=== PATIENT | male | born 1940 | race Two or more races ===

== ENCOUNTER 2019-04-20 14:29 | Inpatient (IN) | payer BC ==
[~2019-04-20] VITALS: Ht 172.7 cm; Wt 88.0 kg
--- NOTE | 2019-04-20 14:32 | NUR ---
[id number], from the liquor store, near syncope, no injury, BS 202,zofran 4mg given on , from the liquor store, near syncope, no injury, BS 202,zofran 4mg given on scene, pt awake, alert, -sob, nad ntoed ,vss, pending md flores
--- NOTE | 2019-04-20 14:42 | NUR ---
AT BEDSIDE FOR EVAL.
[2019-04-20 14:59] LABS: BASOPHILS % (AUTO) 0.5 % (0.0-2.0); EOSINOPHILS % (AUTO) 0.9 % (0.0-6.0); HEMATOCRIT 35 % (39-51); HEMOGLOBIN 11.4 g/dL (13.5-17.5); LYMPHOCYTES # (AUTO) 1.3 /CMM (0.8-4.8); LYMPHOCYTES % (AUTO) 24.8 % (20.0-44.0); MEAN CORPUSCULAR HGB CONC 33 g/dl (31.0-36.0); MEAN CORPUSCULAR VOLUME 89 fL (80-96); MONOCYTES # (AUTO) 0.2 /CMM (0.1-1.30); MONOCYTES % (AUTO) 3.5 % (2.0-12.0); NEUTROPHILS # (AUTO) 3.7 /CMM (1.8-8.9); NEUTROPHILS % (AUTO) 70.3 % (43.0-81.0); PLATELET COUNT (AUTO) 190 /CMM (150-450); RED BLOOD CELL COUNT(AUTO) 3.86 MIL/uL (4.5-6.0); WHITE BLOOD COUNT (AUTO) 5.3 K/uL (4.3-11.0)
[2019-04-20] MEDS ORDERED: IV NS 0.9% 500 ML BAG IV ONE (15:00)
[2019-04-20 15:10] LABS: CALCIUM, SERUM 9.4 mg/dL (8.5-10.1); CARBON DIOXIDE 27 mmol/L (21-32); CHLORIDE 98 mmol/L (98-107); CREATININE 1.5 mg/dL (0.6-1.3); GLUCOSE 206 mg/dL (74-106); POTASSIUM 3.4 mmol/L (3.5-5.1); SODIUM SERUM 134 mmol/L (136-145); UREA NITROGEN, BLOOD 24 mg/dL (7-18)
[2019-04-20 15:16] LABS: ALANINE AMINOTRANSFERASE < 6 U/L (12-78); ALBUMIN 3.2 g/dL (3.4-5.0); ALKALINE PHOSPHATASE 48 U/L (46-116); ASPARTATE AMINOTRANSFERASE 12 U/L (15-37); BILIRUBIN,DIRECT 0.1 mg/dL (0.0-0.2); BILIRUBIN,TOTAL 0.5 mg/dL (0.2-1.0); TOTAL PROTEIN, SERUM 7.2 g/dL (6.4-8.2)
[2019-04-20] MEDS ORDERED: OMEP20TA20 PO (15:26)
[2019-04-20] MEDS ORDERED: TAMS-12 PO (15:26)
[2019-04-20] MEDS ORDERED: AMLO5TAB9 PO (15:26)
[2019-04-20] MEDS ORDERED: ASPI-1169 PO (15:26)
[2019-04-20] MEDS ORDERED: ROSU20TA32 PO (15:26)
[2019-04-20] MEDS ORDERED: OLME40TA18 PO (15:26)
[2019-04-20] MEDS ORDERED: SITA100T PO (15:26)
--- NOTE | 2019-04-20 15:45 | NUR ---
ALESSANDRA TIRADO FOR ADMISSION
--- NOTE | 2019-04-20 16:34 | NUR ---
report given to dallas tomlin for dony pt will be tranposrted to 1st floor
--- NOTE | 2019-04-20 17:27 | NUR ---
pt transported to 1st floor
[2019-04-20 17:30] VITALS: BP 120/60
--- NOTE | 2019-04-20 17:30 | NUR ---
RN NOTE RECEIVED PT, AOX3, AMBULATORY, STEADY GAIT, NO SOB, NO PAIN, NO FEVER, IV ON L HAND INTACT, WITH FAMILY AT SIDE, ABLE TO SWALLOW, ON TELEMETRY SR 77. VSS. SAFETY MEASURES IN PLACE, BED ALARM ON, CALL LIGHT WITHIN REACH, AWAITING FOR DR TIRADO ADMITTING ORDERS. WILL MONITOR.
[2019-04-20 17:58] VITALS: BP 120/60
[2019-04-20] MEDS ORDERED: ONDANSETRON HCL/PF 4 MG/2 ML VIAL IVP PRN (18:00)
[2019-04-20] MEDS ORDERED: ACETAMINOPHEN 325 MG TABLET PO PRN (18:00)
[2019-04-20] MEDS ORDERED: DEXTROSE 50%-WATER 50 ML DISP.SYRIN IV PRN (18:00)
[2019-04-20] MEDS ORDERED: Z GUARD REMEDY 2 OZ OINT TP PRN (18:00)
[2019-04-20] MEDS ORDERED: INSULIN REGULAR, HUMAN 100 UNIT/ML 3 ML VIAL SQ PRN (18:00)
[2019-04-20] MEDS ORDERED: MAGNESIUM HYDROXIDE 30 ML UDC PO PRN (18:00)
[2019-04-20] MEDS ORDERED: HYDROCODONE/APAP 5/325MG 1 EACH TABLET PO PRN (18:00)
[2019-04-20] MEDS ORDERED: MAG HYDROX/AL HYDROX/SIMETH 30 ML UDC PO PRN (18:00)
[2019-04-20] MEDS: IV NS 0.9% 1,000 ML IV PRN (18:08)
[2019-04-20 20:00] VITALS: BP 104/58
--- NOTE | 2019-04-20 20:00 | NUR ---
RECEIVED PATIENT AWAKE,ALERT,DENIES ANY PAIN,NOT IN ANY DISTRESS,DENIES ANY DIZZINESS.MOVES ALL EXTREMITES WELL ,ABLE TO STAND UP WITH NO ISSUES/NO DIZZINESS.WILL CLOSELY MONITOR FOR ANY EPISODE OF SYNCOPE.NEEDS ATTENDED.
[2019-04-21] VITALS: BP_SYST 105; BP_SYST 108; BP_DIAS 50
--- NOTE | 2019-04-21 | NUR ---
REMAINS STABLE,AWAKE,AERT, NO COMPLAINS AT THIS TIME.
[2019-04-21] MEDS: BLOOD SUGAR DIAGNOSTIC 1 EACH STRIP VI SCH ×5 (00:54→22:01)
[2019-04-21 04:00] VITALS: BP 117/58
--- NOTE | 2019-04-21 04:00 | NUR ---
ASLEEP,REMAINS STABLE.
[2019-04-21] MEDS: IV NS 0.9% 1,000 ML IV PRN ×2 (06:08→21:47)
[2019-04-21 06:41] LABS: BASOPHILS % (AUTO) 0.4 % (0.0-2.0); EOSINOPHILS % (AUTO) 1.5 % (0.0-6.0); HEMATOCRIT 33 % (39-51); LYMPHOCYTES # (AUTO) 1.9 /CMM (0.8-4.8); LYMPHOCYTES % (AUTO) 33.5 % (20.0-44.0); MEAN CORPUSCULAR HGB CONC 34 g/dl (31.0-36.0); MEAN CORPUSCULAR VOLUME 88 fL (80-96); MONOCYTES # (AUTO) 0.3 /CMM (0.1-1.30); MONOCYTES % (AUTO) 5.9 % (2.0-12.0); NEUTROPHILS # (AUTO) 3.2 /CMM (1.8-8.9); NEUTROPHILS % (AUTO) 58.7 % (43.0-81.0); PLATELET COUNT (AUTO) 198 /CMM (150-450); RED BLOOD CELL COUNT(AUTO) 3.69 MIL/uL (4.5-6.0); WHITE BLOOD COUNT (AUTO) 5.5 K/uL (4.3-11.0)
[2019-04-21 06:45] LABS: CALCIUM, SERUM 8.6 mg/dL (8.5-10.1); CARBON DIOXIDE 27 mmol/L (21-32); CHLORIDE 106 mmol/L (98-107); CREATININE 1.4 mg/dL (0.6-1.3); GLUCOSE 103 mg/dL (74-106); MAGNESIUM 1.6 mg/dL (1.8-2.4); PHOSPHORUS 3.1 mg/dL (2.5-4.9); POTASSIUM 3.8 mmol/L (3.5-5.1); SODIUM SERUM 142 mmol/L (136-145); UREA NITROGEN, BLOOD 23 mg/dL (7-18)
--- NOTE | 2019-04-21 07:00 | NUR ---
STABLE ALL NIGHT,NO COMPLAIN OF DIZZINESSOR WEAKNESS.ENDORSED AND REPORT GIVEN TO DAY SHIFT RN.
--- NOTE | 2019-04-21 07:20 | NUR ---
RN OPENING NOTE RECEIVED PATIENT IN BED RESTING WITH HOB ELEVATED. BREATHING IS EVEN AND NON LABORED. RESPONSIVE TO NAME AND TACTILE STIMULI. IN NO APPARENT DISTRESS NOTED. CALL LIGHT IS WITHIN EASY REACH. BED IS LOWERED TO LOWEST POSITION AND LOCKED FOR SAFETY. WILL CONTINUE TO MONITOR.
[2019-04-21 08:00] VITALS: BP 113/62
[2019-04-21] MEDS: ASPIRIN 81 MG TAB.CHEW PO SCH (08:31)
[2019-04-21] MEDS: PANTOPRAZOLE 40 MG TABLET.DR PO SCH (08:39)
[2019-04-21] MEDS: Magnesium 1GM/D5W 100ML PREMIX 100 ML IV SCH ×2 (09:50→11:20)
[2019-04-21] MEDS: *INSULIN REGULAR(HUMULIN R)HUM 100 UNIT/ML VIAL SQ PRN (12:27)
[2019-04-21 14:38] LABS: CHOLESTEROL 84 mg/dL (<200); HDL CHOLESTEROL 27 mg/dL (40-60); LDL 40 mg/dL (0-99); TRIGLYCERIDES 150 mg/dL (30-150)
[2019-04-21 15:33] LABS: APPEARANCE,URINE CLEAR (CLEAR); BILIRUBIN,URINE NEGATIVE (NEGATIVE); BLOOD, URINE NEGATIVE Ery/uL (NEGATIVE); COLOR,URINE YELLOW (YELLOW); KETONES,URINE NEGATIVE (NEGATIVE); LEUKOCYTE ESTERASE ,URINE NEGATIVE (NEGATIVE); NITRITE, URINE NEGATIVE (NEGATIVE); PROTEIN,URINE NEGATIVE (NEGATIVE); UGLUCOSE NEGATIVE (NEGATIVE); UROBILINOGEN,URINE 0.2 EU/dL (0.2)
[2019-04-21 16:00] VITALS: BP 126/63
[2019-04-21] MEDS ORDERED: ATORVASTATIN 40 MG TABLET PO SCH (18:00)
--- NOTE | 2019-04-21 18:54 | NUR ---
RN CLOSING NOTE PATIENT IS IN BED RESTING, WATCHING TV. BREATHING IS EVEN AND NON LABORED. AFEBRILE. VITAL SIGNS ARE STABLE. ALL DUE MEDS GIVEN AND TOLERATED WELL WITHOUT ANY ADVERSE EFFECTS NOTED. PATIENT IS A&O X4. ABLE TO AMBULATE TO THE BATHROOM WITHOUT ASSISTANCE. BED IS LOWERED TO LOWEST POSITION AND LOCKED FOR SAFETY. CALL LIGHT IS WITHIN EASY REACH. WILL ENDORSE TO CONTAINER SHOP WELDER RN.
[2019-04-21 20:00] VITALS: BP 121/60
--- NOTE | 2019-04-21 20:02 | NUR ---
MS RN OPENING NOTE RECEIVED PATIENT IN BED. A/O X3. TOLERATING ROOM AIR. RESPIRATIONS ARE EVEN AND UNLABORED. NO S/S SOB NOTED. DENIES PAIN AT THIS TIME. IV ACCESS IN LET HAND RUNNING NS @75ML/HR. BED IS LOW AND LOCKED, HOB IN HIGH FOWLERS, SIDE RIALS UP X2, BED ALARM ON. CALL LIGHT WITHIN REACH. WILL CONTINUE TO MONITOR.
--- NOTE | 2019-04-21 22:04 | NUR ---
MS RN NOTE PATIENT BLOOD SUGAR IS 131. PATIENT REFUSING INSULIN COVERAGE. WILL CONTINUE TO MONITOR.
[2019-04-22] VITALS: BP 121/60
[2019-04-22 04:00] VITALS: BP 124/57
[2019-04-22] MEDS: BLOOD SUGAR DIAGNOSTIC 1 EACH STRIP VI SCH ×2 (06:27→11:51)
--- NOTE | 2019-04-22 06:37 | NUR ---
MS RN CLOSING NOTE PATIENT IN BED. A/O X3. REMAINS TOLERATING ROOM AIR. RESPIRATIONS ARE EVEN AND UNLABORED. NO SOB NOTED. NO C/O PAIN. IV ACCESS MAINTAINED IN LEFT HAND RUNNING NS @75ML/HR. BED IS LOW AND LOCKED, HOB FLAT, SIDE RIALS UP X2, BED ALARM ON. CALL LIGHT WITHIN REACH. WILL ENDORSE TO NEXT SHIFT
[2019-04-22 07:02] LABS: CALCIUM, SERUM 8.4 mg/dL (8.5-10.1); CARBON DIOXIDE 28 mmol/L (21-32); CHLORIDE 110 mmol/L (98-107); CREATININE 1.4 mg/dL (0.6-1.3); GLUCOSE 105 mg/dL (74-106); MAGNESIUM 2.1 mg/dL (1.8-2.4); POTASSIUM 4.1 mmol/L (3.5-5.1); SODIUM SERUM 145 mmol/L (136-145); UREA NITROGEN, BLOOD 16 mg/dL (7-18)
--- NOTE | 2019-04-22 07:15 | NUR ---
RN OPENING NOTE RECEIVED PATIENT IN BED RESTING. BREATHING IS EVEN AND NON LABORED. IN NO APPARENT DISTRESS NOTED. A&O X4. AFEBRILE. BED IS LOCKED AND LOWERED TO LOWEST POSITION. CALL LIGHT IS WITHIN REACH. WILL CONTINUE TO MONITOR.
[2019-04-22 07:56] VITALS: BP 130/61
[2019-04-22 08:00] VITALS: BP 130/61
[2019-04-22] MEDS: ASPIRIN 81 MG TAB.CHEW PO SCH (08:14)
[2019-04-22] MEDS: PANTOPRAZOLE 40 MG TABLET.DR PO SCH (08:14)
[2019-04-22 11:59] VITALS: BP 121/55
[2019-04-22] MEDS: *INSULIN REGULAR(HUMULIN R)HUM 100 UNIT/ML VIAL SQ PRN (11:59)
--- NOTE | 2019-04-22 12:35 | NUR ---
RN D/C NOTES EXITCARE EDUCATION GIVEN TO PT AND PT VERBALLY AGREED THAT HE UNDERSTOOD. ALL QUESTIONS ANSWERED. IV'S REMOVED AND BELONGINGS LIST SIGNED. PT REFUSED WHEELCHAIR AND WALKED OUT OF UNIT WITH SON.
== END 2019-04-22 12:35 | disposition home or self-care (01) | DRG 683 ==
LOC: ER 14:30 → TELE1 17:07 → MEDSG1 04-21 12:16
PROVIDERS: ADMIT Internal Medicine; ATTEND Internal Medicine
DX: N17.0 Acute kidney failure with tubular necrosis (principal); E87.1 Hypo-osmolality and hyponatremia; I95.1 Orthostatic hypotension; K21.9 Gastro-esophageal reflux disease without esophagitis; E83.42 Hypomagnesemia; E78.5 Hyperlipidemia, unspecified; D63.8 Anemia in other chronic diseases classified elsewhere; N40.0 Benign prostatic hyperplasia without lower urinary tract symptoms; N18.9 Chronic kidney disease, unspecified; I12.9 Hypertensive chronic kidney disease with stage 1 through stage 4 chronic kidney disease, or unspecified chronic kidney disease; E11.22 Type 2 diabetes mellitus with diabetic chronic kidney disease; Z79.84 Long term (current) use of oral hypoglycemic drugs; Z87.891 Personal history of nicotine dependence; Z79.82 Long term (current) use of aspirin; Z79.4 Long term (current) use of insulin
CPT/HCPCS: 36415; 70450-TC; 71045-TC; 80048-TC; 80061-TC; 80076-TC; 80305; 81000-TC; 82962-TC; 83735-TC; 84100-TC; 84484-TC; 85025-TC; 87081-TC; 93307-TC; 93880-TC; G0378; J1815; J3475; J7030

== ENCOUNTER 2022-08-03 11:41 | Emergency (ER) | payer BC ==
[~2022-08-03] VITALS: Ht 177.8 cm; Wt 82.1 kg
[~2022-08-03 11:41] MED LIST: ASPI-1169 PO; OMEP20TA20 PO; ROSU20TA32 PO; SITA100T PO
--- NOTE | 2022-08-03 11:41 | NUR ---
BIBA FOR GROUND LEVEL FALL AT HOME, PATIENT A/O X 3, ABLE TO MAKE NEEDS KNOWN, TOLERATING WELL ON ROOM AIR. PATIENT STATES THE FALL OCCURRED LAST NIGHT AT HOME WHEN HE TRIPPED BUT THAT HE DID NOT HIT HIS HEAD.
--- NOTE | 2022-08-03 14:48 | NUR ---
Patient discharged to home in stable condition. Written and verbal after care instructions given. Patient verbalizes understanding of instruction. IV removed. Catheter intact and site benign. Pressure and 4x4 applied to site. No bleeding noted.
[2022-08-03 14:49] VITALS: BP 128/70
== END 2022-08-03 14:49 | disposition home or self-care (01) ==
LOC: ER 11:43
DX: S60.211A Contusion of right wrist, initial encounter (principal); F03.90 Unspecified dementia, unspecified severity, without behavioral disturbance, psychotic disturbance, mood disturbance, and anxiety; K21.9 Gastro-esophageal reflux disease without esophagitis; I10 Essential (primary) hypertension; E11.9 Type 2 diabetes mellitus without complications; Z79.82 Long term (current) use of aspirin; Z79.899 Other long term (current) drug therapy; W19.XXXA Unspecified fall, initial encounter; Y93.89 Activity, other specified; Y92.89 Other specified places as the place of occurrence of the external cause; Y99.8 Other external cause status
CPT/HCPCS: 70450-TC; 71045-TC; 72125-TC; 73110

== ENCOUNTER 2022-08-24 01:33 | Inpatient (IN) | payer BC ==
[~2022-08-24] VITALS: Ht 172.7 cm; Wt 83.5 kg
[2022-08-24] VITALS (9 sets, daily range): BP systolic 89–110; BP diastolic 44–69
--- NOTE | 2022-08-24 01:41 | NUR ---
dylan, from home, had syncopal episode x 2 in the bathrrom, noted bright red BM, BP low 54/20 on scene, BG 213, pale skin color.
--- NOTE | 2022-08-24 01:50 | NUR ---
DANUTA ALFONSO 134; DR LAINE SAEED AWARE
[2022-08-24] MEDS ORDERED: PANTOPRAZOLE 40 MG VIAL ONE (01:54)
[2022-08-24] MEDS ORDERED: PANTOPRAZOLE 40 MG VIAL IV ONE (02:00)
[2022-08-24] MEDS ORDERED: IV NS 0.9% 1,000 ML BAG IV ONE (02:00)
--- NOTE | 2022-08-24 02:09 | NUR ---
COVID ANTIGEN SWAB COLLECTED AND SENT TO LAB
--- NOTE | 2022-08-24 02:09 | NUR ---
RAC #20G S/L BLOOD COLLECTED AND SENT TO LAB
--- NOTE | 2022-08-24 02:20 | NUR ---
PT TAKEN TO CT
[2022-08-24 02:21] LABS: BASOPHILS % (AUTO) 0.3 % (0.0-2.0); EOSINOPHILS % (AUTO) 4.9 % (0.0-6.0); HEMATOCRIT 22 % (39-51); HEMOGLOBIN 7.2 g/dL (13.5-17.5); LYMPHOCYTES # (AUTO) 2.7 K/uL (0.8-4.8); LYMPHOCYTES % (AUTO) 38.6 % (20.0-44.0); MEAN CORPUSCULAR HGB CONC 32 g/dl (31.0-36.0); MEAN CORPUSCULAR VOLUME 91 fL (80-96); MONOCYTES # (AUTO) 0.2 K/uL (0.1-1.30); MONOCYTES % (AUTO) 2.4 % (2.0-12.0); NEUTROPHILS # (AUTO) 3.7 K/uL (1.8-8.9); NEUTROPHILS % (AUTO) 53.8 % (43.0-81.0); PLATELET COUNT (AUTO) 210 K/uL (150-450); RED BLOOD CELL COUNT(AUTO) 2.45 MIL/uL (4.5-6.0); WHITE BLOOD COUNT (AUTO) 6.9 K/uL (4.3-11.0)
--- NOTE | 2022-08-24 02:34 | NUR ---
PT RETURNED FROM CT
[2022-08-24 02:43] LABS: CALCIUM, SERUM 8.3 mg/dL (8.5-10.1); CARBON DIOXIDE 24 mmol/L (21-32); CHLORIDE 106 mmol/L (98-107); CREATININE 1.7 mg/dL (0.6-1.3); GLUCOSE 177 mg/dL (74-106); POTASSIUM 4.7 mmol/L (3.5-5.1); SODIUM SERUM 139 mmol/L (136-145); UREA NITROGEN, BLOOD 15 mg/dL (7-18)
[2022-08-24 02:46] LABS: ALCOHOL, BLOOD < 3 mg/dL (0-0)
[2022-08-24 02:50] LABS: ALANINE AMINOTRANSFERASE 12 U/L (12-78); ALBUMIN 2.4 g/dL (3.4-5.0); ALKALINE PHOSPHATASE 45 U/L (46-116); ASPARTATE AMINOTRANSFERASE 14 U/L (15-37); BILIRUBIN,DIRECT 0.1 mg/dL (0.0-0.2); BILIRUBIN,TOTAL 0.5 mg/dL (0.2-1.0); LIPASE 74 U/L (73-393); TOTAL PROTEIN, SERUM 5.7 g/dL (6.4-8.2)
[2022-08-24 02:57] LABS: THYROID STIMULATING HORMONE 5.451 uIU/mL (0.358-3.74)
--- NOTE | 2022-08-24 03:05 | NUR ---
URINE COLLECTED FROM CARLISLE AND SENT TO LAB
[2022-08-24 03:52] LABS: BILIRUBIN,URINE NEGATIVE (NEGATIVE); COLOR,URINE YELLOW (YELLOW); LEUKOCYTE ESTERASE ,URINE NEGATIVE (NEGATIVE); NITRITE, URINE NEGATIVE (NEGATIVE); PROTEIN,URINE TRACE mg/dl (NEGATIVE); UGLUCOSE NEGATIVE (NEGATIVE); UROBILINOGEN,URINE 0.2 EU/dL (0.2)
[2022-08-24] MEDS ORDERED: ZOLPIDEM TARTRATE 5 MG TABLET PO PRN (04:00)
[2022-08-24] MEDS ORDERED: MAGNESIUM HYDROXIDE 30 ML UDC PO PRN (04:00)
[2022-08-24] MEDS ORDERED: MAG HYDROX/AL HYDROX/SIMETH 30 ML UDC PO PRN (04:00)
[2022-08-24] MEDS ORDERED: ONDANSETRON HCL/PF 4 MG/2 ML VIAL IVP PRN (04:00)
[2022-08-24] MEDS ORDERED: ACETAMINOPHEN 325 MG TABLET PO PRN (04:00)
[2022-08-24] MEDS ORDERED: Z GUARD REMEDY 4 OZ OINT TP PRN (04:00)
[2022-08-24 04:10] LABS: BACTERIA,URINE Rare /HPF (None Seen); SQUAMOUS EPITHELIAL CELL,UR Few /HPF (None Seen); WBC,URINE 0-2 /HPF (0-3)
--- NOTE | 2022-08-24 04:27 | NUR ---
ATTEMPTED TO GET BLOOD CONSENT FOR FREDERICMARLEE DAUGHTER [phone] AWAITING FOR DECISION; STATED SHE WILL CONSULT WITH BROTHER FIRST
--- NOTE | 2022-08-24 04:57 | NUR ---
OBTAINED CONSENT FOR BLOOD TRANSFUSION
--- NOTE | 2022-08-24 05:02 | NUR ---
PROFESSOR OF FINANCE AT PT'S BEDSIDE
[2022-08-24 05:14] LABS: BASOPHILS % (AUTO) 0.5 % (0.0-2.0); EOSINOPHILS % (AUTO) 1.8 % (0.0-6.0); HEMATOCRIT 21 % (39-51); LYMPHOCYTES # (AUTO) 1.3 K/uL (0.8-4.8); LYMPHOCYTES % (AUTO) 25.2 % (20.0-44.0); MEAN CORPUSCULAR HGB CONC 33 g/dl (31.0-36.0); MEAN CORPUSCULAR VOLUME 90 fL (80-96); MONOCYTES # (AUTO) 0.2 K/uL (0.1-1.30); MONOCYTES % (AUTO) 3.3 % (2.0-12.0); NEUTROPHILS # (AUTO) 3.5 K/uL (1.8-8.9); NEUTROPHILS % (AUTO) 69.2 % (43.0-81.0); PLATELET COUNT (AUTO) 182 K/uL (150-450); RED BLOOD CELL COUNT(AUTO) 2.35 MIL/uL (4.5-6.0); WHITE BLOOD COUNT (AUTO) 5.1 K/uL (4.3-11.0)
[2022-08-24] MEDS ORDERED: PIPERACILLIN /TAZOBACTAM 3.375 G in IV D5W 50 ML IV SCH (06:00)
[2022-08-24] MEDS: IV NS 0.9% 1,000 ML IV PRN ×2 (06:55→12:56)
--- NOTE | 2022-08-24 07:37 | NUR ---
BED ASSIGNED. GOING TO 104. ADMITTING AWARE.
--- NOTE | 2022-08-24 08:03 | NUR ---
REPORT GIVEN TO OGNZALEZ FU. ROOM 104.
[2022-08-24] MEDS: PANTOPRAZOLE 40 MG VIAL IV SCH ×2 (09:10→21:46)
[2022-08-24] MEDS ORDERED: DONE5TAB34 PO (09:29)
[2022-08-24] MEDS ORDERED: TAMS-12 PO (09:29)
[2022-08-24] MEDS ORDERED: OLME20TA13 PO (09:30)
[2022-08-24] MEDS ORDERED: DEXTROSE 50%-WATER 50 ML DISP.SYRIN IV PRN (11:30)
[2022-08-24] MEDS: BLOOD SUGAR DIAGNOSTIC 1 EACH STRIP IN SCH ×3 (12:28→21:49)
[2022-08-24] MEDS: ZOSYN IVPB 2.25 G in IV D5W 50ml IV SCH ×2 (12:51→18:09)
[2022-08-24 16:16] LABS: HEMOGLOBIN 6.9 g/dL (13.5-17.5)
--- NOTE | 2022-08-24 16:23 | NUR ---
RN notes: notified DR Avila Hemoglobin 6.9. pt received 1 unit RBC no bleeding noted since admission, no BM noted with order to recheck H&H ay 1700 ,order carried out
[2022-08-24] MEDS: INSULIN REGULAR, HUMAN 100 UNIT/ML 3 ML VIAL SQ PRN ×2 (17:35→21:53)
[2022-08-24 18:01] LABS: HEMOGLOBIN 7.7 g/dL (13.5-17.5)
[2022-08-24] MEDS: ATORVASTATIN 40 MG TABLET PO SCH (18:25)
--- NOTE | 2022-08-24 19:10 | NUR ---
ELECTRICAL AND INSTRUMENT ENGINEER open note received pt resting in bed, awake, A&Ox2, verbal, breathing even and unlabored, on RA, RAC 20GA, C/D/I, L wrist 20GA, D/C/I, NS @ 150 cc/hr infusing well, espinoza cath intact, draining clear yellow urine, 0 s/s of infection, pt is afebrile, in stable condition, will continue to monitor
--- NOTE | 2022-08-24 19:35 | NUR ---
CAMPUS EXECUTIVE DIRECTOR CLOSING NOTE PT IN BED, AWAKE. A/O X2, . VERBALLY RESPONSIVE. STABLE ON RA, HOB ELEVATED, WITH NO S/S OF SOB OR DISTRESS. IV ACCESS RAC #20G INTACT, PATENT, FLUSHING WELL, RUNNING NS @ 150 ML/HR. ORDER PICKER WITH SINUS RHYTHM . CARLISLE CATHETER INTACT, WITH CLEAR YELLOW URINE. ALL DUE MEDS WERE GIVEN ORDERED. KEPT CLEAN AND DRY AT COMFORTABLE AT ALL TIMES.SAFETY PRECAUTIONS MAINTAINED: BED LOCKED AND IN LOW POSITION, BED ALARM ON, SIDE RAILS UP X3, CALL LIGHT AND TRAY TABLE WITHIN REACH. WILL ENDORSE TO I
[2022-08-25] VITALS (12 sets, daily range): BP systolic 94–124; BP diastolic 46–73
[2022-08-25] MEDS: ZOSYN IVPB 2.25 G in IV D5W 50ml IV SCH ×4 (00:06→18:21)
[2022-08-25 01:03] LABS: HEMOGLOBIN 6.9 g/dL (13.5-17.5)
[2022-08-25] MEDS: IV NS 0.9% 1,000 ML IV PRN ×3 (01:25→20:20)
--- NOTE | 2022-08-25 05:28 | NUR ---
RN NOTE BLOOD TRANSFUSION ENDED AT THIS TIME. VSS. NO ADVERSE REACTION AT THIS TIME.
[2022-08-25] MEDS: TAMSULOSIN 0.4 MG CAP.SR.24H PO SCH (06:00)
--- NOTE | 2022-08-25 06:45 | NUR ---
SALES PROJECT MANAGER closing note Pt resting in bed, awake, A&Ox2, verbal, afebrile, on RA, breathing even and unlabored, RAC 20 GA, D/C/I, L wrist 20 GA, D/C/I, NS @ 150 cc/hr, infusing well, 1 unit of PRBC rendered well per MD orders for HGB 6.9, tolerated well, espinoza cath intact and draining clear yellow urine, all due meds given per MD orders tolerated well, all basic needs met and anticipated, pt refused bed bath x3, stated being too tired, all safety measures in place, will continue to monitor.
--- NOTE | 2022-08-25 07:37 | NUR ---
WOUND CARE CONSULT: PT PRESENTS WITH MULTIPLE AREAS OF SKIN DISCOLORATION, DRY SCABS PRESENT ON ADMISSION. BLANCHABLE REDNESS NOTED TO HEELS. DISCUSSED SKIN PROTECTION WITH NURSING STAFF. MD IN AGREEMENT WITH PLAN OF CARE. CARLISLE CATH NOTED.
[2022-08-25] MEDS: INSULIN REGULAR, HUMAN 100 UNIT/ML 3 ML VIAL SQ PRN ×3 (07:51→22:47)
[2022-08-25] MEDS: BLOOD SUGAR DIAGNOSTIC 1 EACH STRIP IN SCH ×4 (07:51→22:46)
[2022-08-25 08:34] LABS: BASOPHILS % (AUTO) 0.6 % (0.0-2.0); EOSINOPHILS % (AUTO) 6.4 % (0.0-6.0); HEMATOCRIT 26 % (39-51); HEMOGLOBIN 8.5 g/dL (13.5-17.5); LYMPHOCYTES # (AUTO) 1.8 K/uL (0.8-4.8); LYMPHOCYTES % (AUTO) 40.9 % (20.0-44.0); MEAN CORPUSCULAR HGB CONC 33 g/dl (31.0-36.0); MEAN CORPUSCULAR VOLUME 91 fL (80-96); MONOCYTES # (AUTO) 0.2 K/uL (0.1-1.30); MONOCYTES % (AUTO) 4.3 % (2.0-12.0); NEUTROPHILS # (AUTO) 2.1 K/uL (1.8-8.9); NEUTROPHILS % (AUTO) 47.8 % (43.0-81.0); PLATELET COUNT (AUTO) 163 K/uL (150-450); RED BLOOD CELL COUNT(AUTO) 2.83 MIL/uL (4.5-6.0); WHITE BLOOD COUNT (AUTO) 4.4 K/uL (4.3-11.0)
[2022-08-25] MEDS: DONEPEZIL 5 MG TABLET PO SCH (08:48)
[2022-08-25] MEDS: PANTOPRAZOLE 40 MG VIAL IV SCH ×2 (08:48→21:52)
[2022-08-25 09:03] LABS: CALCIUM, SERUM 7.8 mg/dL (8.5-10.1); CARBON DIOXIDE 24 mmol/L (21-32); CHLORIDE 111 mmol/L (98-107); CREATININE 1.4 mg/dL (0.6-1.3); GLUCOSE 114 mg/dL (74-106); MAGNESIUM 1.7 mg/dL (1.8-2.4); POTASSIUM 3.9 mmol/L (3.5-5.1); SODIUM SERUM 142 mmol/L (136-145); UREA NITROGEN, BLOOD 10 mg/dL (7-18)
[2022-08-25] MEDS ORDERED: PEG 3350/NA SULF,BICARB,CL/KCL 4,000 ML BOTTLE PO ONE ×2 (09:30→19:30)
--- NOTE | 2022-08-25 10:19 | NUR ---
RN OPENING NOTE RECEIVED PATIENT IN BED, ALERT, ORIENTED X2 WITH CONFUSION, ON ROOM AIR, IV ACCESS ON LEFT WRIST STEPHANI 20 PATENT AND FLUSHING WELL, IV ACCESS ON RAC 20 STEPHANI, ALSO PATENT AND FLUSHING WELL. ON ROOM AIR, NO SHORTNESS OF BREATH OR DISCOMFORT NOTED. ON CONTINUES IV. SAFETY MEASURES IMPLEMENTED, HEAD OF BED ELEVATED, BED IN LOWEST AND LOCKED POSITION. WILL CONTINUE TO MONITOR
--- NOTE | 2022-08-25 10:38 | NUR ---
RN NOTE [id number] GOLYTELY SHANA, WAS DELIVERED BY PHARMACY RIGHT NOW.
--- NOTE | 2022-08-25 13:29 | NUR ---
RN NOTE PATIENT TAKEN FOR TO GI PROCEDURE AT THIS TIME.
--- NOTE | 2022-08-25 16:00 | NUR ---
RN NOTE PATIENT BACK TO [facility] FROM PROCEDURE
[2022-08-25 16:55] LABS: HEMOGLOBIN 8.1 g/dL (13.5-17.5)
[2022-08-25] MEDS: ATORVASTATIN 40 MG TABLET PO SCH (18:21)
--- NOTE | 2022-08-25 19:24 | NUR ---
RN NOTE RECEIVED RESULTS FROM LAB, PICTURE OF RESULTS SENT TO DR FERRELL, PER DOCTOR GHASSAN JI IS COVERING THE RESULTS
--- NOTE | 2022-08-25 19:53 | NUR ---
RN CLOSING NOTE RECEIVED PATIENT IN BED, ALERT, ORIENTED X2 WITH CONFUSION, ON ROOM AIR, IV ACCESS ON LEFT WRIST STEPHANI 20 PATENT AND FLUSHING WELL, IV ACCESS ON RAC 20 STEPHANI, ALSO PATENT AND FLUSHING WELL. ON ROOM AIR, NO SHORTNESS OF BREATH OR DISCOMFORT NOTED. ON CONTINUES IV. SAFETY MEASURES IMPLEMENTED, HEAD OF BED ELEVATED, BED IN LOWEST AND LOCKED POSITION. WILL ENDORSE TO SECURITY NURSE FOR ETHAN
--- NOTE | 2022-08-25 20:00 | NUR ---
MANAGER OF IT OPENING NOTE PATIENT ALERT/ORIENTED X 2, PT ABLE TO MAKE NEEDS KNOWN. PATIENT STABLE ON RA, NO S/S OF DISTRESS OR SOB NOTED, BREATHING EVEN AND UNLABORED. PATIENT ON TELE MONITORING READING SINUS RHYTHM WITH PAC'S HR: 80. IV ACCESS ON RAC #20G INTACT AND INFUSING NS @ 150 ML/HR. PER DAYSHIFT RN SPOKE TO DR. FERRELL WHO STATED PATIENT NEEDS TO BE ON CLEAR LIQUID DIET AND DRINK GOLYTELY D/T BLEEDING, EXPLAINED TO PATIENT AND PATIENT VERBALIZED UNDERSTANDING. CARLISLE CATH IN PLACE AND DRAINING YELLOW URINE BY GRAVITY. SAFETY MEASURES IN PLACE: CALL LIGHT WITHIN REACH, SIDE RAILS UP X 2, BED LOCKED IN LOWEST POSITION, HOB ELEVATED, BED ALARM ON. WILL CONTINUE TO MONITOR PATIENT
[2022-08-26] VITALS: BP 124/47
[2022-08-26] MEDS: ZOSYN IVPB 2.25 G in IV D5W 50ml IV SCH ×4 (00:36→19:32)
[2022-08-26 00:51] LABS: HEMOGLOBIN 7.5 g/dL (13.5-17.5)
[2022-08-26 04:00] VITALS: BP 104/63
[2022-08-26] MEDS: TAMSULOSIN 0.4 MG CAP.SR.24H PO SCH (06:55)
[2022-08-26] MEDS: IV NS 0.9% 1,000 ML IV PRN ×2 (06:55→13:39)
--- NOTE | 2022-08-26 07:22 | NUR ---
CENTRAL SUPPLY CLERK CLOSING NOTE PATIENT SLEEPING IN BED, ALERT/ORIENTED X 1-2, PERIODS OF CONFUSION AND AGITATION, PT ABLE TO MAKE NEEDS KNOWN. PATIENT STABLE ON RA, NO S/S OF DISTRESS OR SOB NOTED, BREATHING EVEN AND UNLABORED. PATIENT ON TELE MONITORING READING SINUS RHYTHM WITH PAC'S HR: 65. IV ACCESS ON RIGHT WRIST #22G INTACT AND INFUSING ZOSYN @ 100 ML/HR. PATIENT KEPT ON CLEAR LIQUID DIET, PT DRANK ABOUT 1/4 - 2/3 OF GOLYTELY. CARLISLE CATH IN PLACE AND DRAINING YELLOW URINE BY GRAVITY. MEDICATIONS GIVEN ORDERED, PT NEEDS MET THROUGHOUT SHIFT. SAFETY MEASURES IN PLACE: CALL LIGHT WITHIN REACH, SIDE RAILS UP X 2, BED LOCKED IN LOWEST POSITION, HOB ELEVATED, BED ALARM ON. ENDORSED TO DAYSHIFT RN FOR CONTINUITY OF CARE
[2022-08-26 08:00] VITALS: BP_SYST 128; BP_SYST 98; BP_DIAS 56; BP_DIAS 57
[2022-08-26] MEDS: BLOOD SUGAR DIAGNOSTIC 1 EACH STRIP IN SCH ×4 (08:12→21:19)
[2022-08-26] MEDS: DONEPEZIL 5 MG TABLET PO SCH (08:17)
[2022-08-26] MEDS: PANTOPRAZOLE 40 MG VIAL IV SCH ×2 (08:17→21:19)
[2022-08-26 08:24] LABS: HEMOGLOBIN 8.2 g/dL (13.5-17.5)
[2022-08-26 12:00] VITALS: BP 115/61
--- NOTE | 2022-08-26 13:30 | NUR ---
CONSENT FORMS PATIENT'S DAUGHTER SHALLY THE DAUGHTER IN LAW, WHO IS INVOLVED WITH PATIENT'S MEDICAL CARE, SIGNED THE ALL 3 FOLLOWING CONSENTS (BLOOD TRANSFUSION, ANESTHESIA, AND PROCEDURE) BEHALF OF PATIENT.
[2022-08-26 16:00] VITALS: BP 139/59
[2022-08-26 16:16] LABS: HEMOGLOBIN 8.3 g/dL (13.5-17.5)
--- NOTE | 2022-08-26 17:30 | NUR ---
@[id number] PATIENT TAKEN TO OR VIA GURNEY FOR THE PROCEDURE OF COLONOSCOPY.
--- NOTE | 2022-08-26 19:00 | NUR ---
PATIENT HAS NOT CAME BACK FROM COLONOSCOPY PROCEDURE YET.
[2022-08-26] MEDS: ATORVASTATIN 40 MG TABLET PO SCH (19:32)
--- NOTE | 2022-08-26 19:40 | NUR ---
GAS WELL PUMPER OPENING NOTES PATIENT CAME BACK FROM S/P COLONOSCOPY. PLACED IN ROOM 104 BED-1. ALERT/ORIENTED X 2 AND VERBALLY RESPONSIVE. ON ROOM AIR AND PT TOLERATED WELL. BREATHING EVEN AND UNLABORED. IV ACCESS ON RT WRIST#22G INTACT AND PATENT. MO S/S OF INFILTRATIONS. RUNNING NS @ 150 CC/HR. NEW ORDER- CLEAR LIQUID DIET. NO C/O PAIN OR DISCOMFORT. NO ACUTE DISTRESS. CARLISLE CATH IN PLACE. DRAINING CLEAR/YELLOW URINE. ALL SAFETY MEASURES IN PLACE. SIDE RAILS UP X 2, BED IN LOWEST POSITION AND LOCKED, HOB ELEVATED, PLACE CALL LIGHT WITHIN REACH, BED ALARM ON. WILL CONTINUE TO MONITOR
[2022-08-26 20:00] VITALS: BP 131/70
--- NOTE | 2022-08-26 20:08 | NUR ---
RN NOTES: PT'S DAUGHTER CALLED, GAVE HER ALL THE UPDATES.
[2022-08-26] MEDS: INSULIN REGULAR, HUMAN 100 UNIT/ML 3 ML VIAL SQ PRN (21:19)
--- NOTE | 2022-08-26 21:27 | NUR ---
RN NOTES: PT'S BLOOD SUGAR 88. NO COVERAGE NEEDED. NO S/S OF HYPER/HYPOGLYCEMIA. WILL CONTINUE TO MONITOR
[2022-08-27] VITALS: BP 138/68
[2022-08-27] MEDS: ZOSYN IVPB 2.25 G in IV D5W 50ml IV SCH ×4 (00:05→18:00)
[2022-08-27 00:25] LABS: HEMOGLOBIN 8.4 g/dL (13.5-17.5)
--- NOTE | 2022-08-27 03:17 | NUR ---
RN NOTES: REPORT GIVEN September
[2022-08-27 04:00] VITALS: BP 132/61
[2022-08-27] MEDS: IV NS 0.9% 1,000 ML IV PRN (04:28)
[2022-08-27] MEDS: TAMSULOSIN 0.4 MG CAP.SR.24H PO SCH (06:23)
--- NOTE | 2022-08-27 06:46 | NUR ---
RELOCATION COUNSELOR CLOSING NOTES - PATIENT IN BED WITH EYES CLOSED, EASY TO AROUSE. ABLE TO VERBALIZE NEEDS. NO SOB OR NOTED, SATURATING WELL IN ROOM AIR. NO CARDIAC OR RESPIRATORY DISTRESS. AFEBRILE. ON TELE MONITOR READING SINUS RHYTHM WITH OCCASIONAL PVC AT 70 BPM. RIGHT WRIST IV ACCESS INTACT, PATENT AND FLUSHING. 1100 ML CLEAR YELLOW URINE OUTPUT NOTED. STRICT ASPIRATION PRECAUTIONS OBSERVED. ALL DUE MEDS GIVEN AND NEEDS ATTENDED. SAFETY MEASURES MAINTAINED. WILL ENDORSE TO NEXT SHIFT FOR ETHAN.
[2022-08-27] MEDS: BLOOD SUGAR DIAGNOSTIC 1 EACH STRIP IN SCH ×3 (07:59→16:55)
[2022-08-27 08:00] VITALS: BP 129/53
[2022-08-27] MEDS: PANTOPRAZOLE 40 MG VIAL IV SCH (08:10)
[2022-08-27] MEDS: DONEPEZIL 5 MG TABLET PO SCH (08:10)
[2022-08-27 08:46] LABS: HEMOGLOBIN 8.3 g/dL (13.5-17.5)
[2022-08-27 08:56] LABS: CARBON DIOXIDE 23 mmol/L (21-32); CHLORIDE 111 mmol/L (98-107); CREATININE 1.5 mg/dL (0.6-1.3); GLUCOSE 139 mg/dL (74-106); POTASSIUM 3.9 mmol/L (3.5-5.1); SODIUM SERUM 142 mmol/L (136-145); UREA NITROGEN, BLOOD 9 mg/dL (7-18)
[2022-08-27 12:00] VITALS: BP 135/68
[2022-08-27 16:00] VITALS: BP 139/77
[2022-08-27] MEDS: ATORVASTATIN 40 MG TABLET PO SCH (18:00)
--- NOTE | 2022-08-27 19:00 | NUR ---
PATIENT PICKED UP BY DAUGHTER IN LAW JENNY TO HIS HOME, BY PRIVATE CAR, PATIENT TAKEN TO THE LOBBY BY SAIDE SUAREZ AND THEN JENNY TOOK HIM TO HER CAR. PATIENT WAS ON ROOM AIR, AMBULATORY WITH TYRE RETREADER. PATIENT'S DAUGHTER REQUESTED TO NOT REMOVE THE CARLISLE CATHETER BECAUSE PATIENT CANNOT URINATE ON HIS OWN DUE TO PROSTATE ENLARGEMENT. DR. SMITH IS AWARE OF IT. ALL DUE MEDS GIVEN TO THE PATIENT PRIOR TO HIS DISCHARGE. DISCHARGE CONSENT SIGNED BY JENNY. AND MEDICATION LIST ALL DISCHARGE PAPER GIVEN TO THE PATIENT'S DAUGHTER IN LAW JENNY.
[2022-08-27] MEDS ORDERED: PANTOPRAZOLE 40 MG/PACK PACK PO SCH (21:00)
== END 2022-08-27 18:09 | disposition home or self-care (01) | DRG 393 ==
LOC: ER 01:34 → TELE1 07:41
PROVIDERS: ADMIT Internal Medicine
PROC: 30233N1 Transfusion of Nonautologous Red Blood Cells into Peripheral Vein, Percutaneous Approach (ICD-10-PCS; principal; 2022-08-24)
PROC: 0W3P8ZZ Control Bleeding in Gastrointestinal Tract, Via Natural or Artificial Opening Endoscopic (ICD-10-PCS; 2022-08-26)
DX: K62.6 Ulcer of anus and rectum (principal); N17.0 Acute kidney failure with tubular necrosis; D62 Acute posthemorrhagic anemia; E87.20 Acidosis, unspecified; M48.54XA Collapsed vertebra, not elsewhere classified, thoracic region, initial encounter for fracture; R18.8 Other ascites; I13.10 Hypertensive heart and chronic kidney disease without heart failure, with stage 1 through stage 4 chronic kidney disease, or unspecified chronic kidney disease; K57.90 Diverticulosis of intestine, part unspecified, without perforation or abscess without bleeding; N40.0 Benign prostatic hyperplasia without lower urinary tract symptoms; E11.22 Type 2 diabetes mellitus with diabetic chronic kidney disease; E78.5 Hyperlipidemia, unspecified; F03.90 Unspecified dementia, unspecified severity, without behavioral disturbance, psychotic disturbance, mood disturbance, and anxiety; N18.9 Chronic kidney disease, unspecified; R33.8 Other retention of urine; N40.1 Benign prostatic hyperplasia with lower urinary tract symptoms; E83.42 Hypomagnesemia; K21.9 Gastro-esophageal reflux disease without esophagitis
CPT/HCPCS: 36415; 70450-TC; 71045-TC; 80048-TC; 80076-TC; 81001; 82962-TC; 83605-TC; 83690-TC; 83735-TC; 84100-TC; 84443-TC; 84484-TC; 85025-TC; 85027-TC; 85730-TC; 86850-TC; 87040-TC; 87081-TC; 97110-TC; 97112-TC; 97530-TC; A4223; A9560; C9113; C9803; G0378; G0480; J1815; J2543; J2704; J3490; J7030; J7050; J7060; P9016